=== PATIENT | female | born 1995 | race Caucasian/White ===

== ENCOUNTER 2016-08-07 00:15 | Emergency (ER) | payer BC ==
[~2016-08-07] VITALS: Ht 170.2 cm; Wt 142.9 kg
--- OUTSIDE RECORDS SUMMARY | 2016-08-07 00:26 | XMS REPORT ---
Author Author IMANI OLIVER Organization [employer] Address Unknown Phone Unavailable Care Team Providers Care Casing Splitter Name Role Phone IMANI OLIVER CP Unavailable Allergies, Adverse Reactions, Alerts Substance Reaction Event Type N.K.D.A. Info Not Available Non Drug Allergy Problems Problem Type Condition Code Onset Dates Condition Status Problem General counseling for prescription of oral contraceptives V25.01 Active Problem Scanty or infrequent menstruation 626.1 Active Problem Dysthymic disorder 300.4 Active Assessment Upper respiratory tract infection, unspecified type J06.9 Active Problem Morbid obesity 278.01 Active Problem Counseling on other sexually transmitted diseases V65.45 Active Medications No Known Medications Procedures Procedure Coding System Code Date Office Visit, Est Pt., Level 3 CPT-4 74170 Jun 04, 2015 Vital Signs Date/Time: Jun 04, 2015 Temperature 98.4 F Weight 304.4 lbs Height 67 in BMI 47.67 Index Blood Pressure Diastolic 80 mmHg Blood Pressure Systolic 124 mmHg Cardiac Monitoring Heart Rate 96 bpm Results No Known Results Summary Purpose [employer] Submission
[2016-08-07] MEDS ORDERED: CITA10TA7 (00:34)
[2016-08-07] MEDS ORDERED: METF500T8 (00:34)
--- NOTE | 2016-08-07 00:59 | ED GI ---
General Chief Complaint: Abdominal/GI Problems Stated Complaint: LEFT UPPER SIDE PAIN,SPREADING TO BACK Nursing Triage Note: LUQ abdomen pain x 1 month. reports pain getting worse and has had diarrhea the past few days Sepsis Screen: No Definite Risk Source of Information: Patient History of Present Illness Time Seen By Provider: 12:45 Initial Comments 21-year-old female presents with upper abdominal pain for one month. States his been progressively getting worse. Had diarrhea for a few days. States the pains more located on the left side wraps around to her back. She is also having right -sided abdominal pain. She denies any fevers or chills. Allergies and Home Medications Allergies Coded Allergies: No Known Drug Allergies (Unverified , 08/07/16) Home Medications Citalopram Hydrobromide 10 Mg Tablet #30 (Reported) Metformin HCl 500 Mg Tab.er.24h #30 (Reported) Review of Systems Constitutional: No chills, No fever EENTM: No Symptoms Reported Respiratory: No Symptoms Reported Cardiovascular: Denies Chest Pain Gastrointestinal: Abdominal Pain DiarrheaDenies Vomiting Genitourinary: No Symptoms Reported Skin: no symptoms reported Psychiatric/Neurological: No Symptoms Reported Past Yxhovdu-Ddmugq-Opvuag Hx Patient Social History Alcohol Use: Regular Use Recreational Drug Use: No Smoking Status: Never a Smoker Recent Foreign Travel: No Contact w/Someone Who Travel: No Recent Infectious Disease Expo: No Recent Hopitalizations: No Physical Abuse Screen: No Sexual Abuse: No Seasonal Allergies Seasonal Allergies: No Surgeries HX Surgeries: No Respiratory Hx Respiratory Disorders: No Cardiovascular Hx Cardiac Disorders: No Neurological Hx Neurological Disorders: No Reproductive System Hx Reproductive Disorders: No Sexually Transmitted Disease: No Genitourinary Hx Genitourinary Disorders: No Gastrointestinal Hx Gastrointestinal Disorders: No Musculoskeletal Hx Musculoskeletal Disorders: No Endocrine Hx Endocrine Disorders: Yes Endocrine Disorders: Diabetes, Non-Insulin dep HEENT HX ENT Disorders: No Cancer Hx Cancer: No Psychosocial Hx Psychiatric Problems: No Integumentary HX Skin/Integumentary Disorder: No Blood Transfusions Hx Blood Disorders: No Physical Exam Vital Signs VS - Last 72 Hours, by Label 08/07/16 08/07/16 00:30 02:16 Temp 99.3 98.0 Pulse 106 98 Resp 18 20 B/P 170/98 Pulse Ox 95 99 Capillary Refill : Less Than 3 Seconds General Appearance: WD/WN no apparent distress HEENT: PERRL/EOMI Respiratory: lungs clear normal breath sounds Cardiovascular: regular rate, rhythm Peripheral Pulses: 2+ Radial Pulses (R), 2+ Radial Pulses (L) Gastrointestinal: soft tenderness (mild ttp, ruq, luq ) Extremities: normal range of motion non-tender Neurologic/Psychiatric: alert oriented x 3 Skin: normal color warm/dry Progress/Results/Core Measures Results/Orders Lab Results Laboratory Tests Test 08/07/16 00:50 08/07/16 01:23 Range/Units Urine Bacteria MODERATE H /HPF Urine Bilirubin NEGATIVE NEGATIVE Urine Casts NONE /LPF Urine Clarity SLIGHTLY CLOUDY Urine Color YELLOW Urine Crystals NONE /LPF Urine Culture Indicated YES Urine Glucose (UA) NEGATIVE NEGATIVE Urine Ketones NEGATIVE NEGATIVE Urine Leukocyte Esterase 2+ H NEGATIVE Urine Mucus NEGATIVE /LPF Urine Nitrite NEGATIVE NEGATIVE Urine Protein NEGATIVE NEGATIVE Urine RBC NONE /HPF Urine RBC (Auto) NEGATIVE NEGATIVE Urine Specific [place] 1.010 L 1.016-1.022 Urine Squamous Epithelial Cells 10-25 H /HPF Urine Urobilinogen 1 NORMAL MG/DL Urine WBC 5-10 H /HPF Urine pH 7 5-9 Alanine Aminotransferase (ALT/SGPT) 42 0-55 U/L Albumin 4.4 3.2-4.5 G/DL Alkaline Phosphatase 60 40-136 U/L Anion Gap 14 5-14 MMOL/L Aspartate Amino Transf (AST/SGOT) 19 5-34 U/L BUN/Creatinine Ratio 11 Basophils # (Auto) 0.0 0.0-0.1 10^3/uL Basophils (%) (Auto) 0 0-10 % Blood Urea Nitrogen 8 7-18 MG/DL Calcium Level 9.3 8.5-10.1 MG/DL Carbon Dioxide Level 21 21-32 MMOL/L Chloride Level 105 98-107 MMOL/L Creatinine 0.70 0.60-1.30 MG/DL Eosinophils # (Auto) 0.3 0.0-0.3 10^3/uL Eosinophils (%) (Auto) 2 0-10 % Estimat Glomerular Filtration Rate > 60 Glucose Level 150 H 70-105 MG/DL Hematocrit 41 35-52 % Hemoglobin 13.1 11.5-16.0 G/DL Lipase 28 8-78 U/L Lymphocytes # (Auto) 2.3 1.0-4.0 X 10^3 Lymphocytes (%) (Auto) 20 12-44 % Mean Corpuscular Hemoglobin 27 25-34 PG Mean Corpuscular Hemoglobin Concent 32 32-36 G/DL Mean Corpuscular Volume 86 80-99 FL Mean Platelet Volume 11.2 H 7.4-10.4 FL Monocytes # (Auto) 0.6 0.0-1.0 X 10^3 Monocytes (%) (Auto) 5 0-12 % Neutrophils # (Auto) 8.4 H 1.8-7.8 X 10^3 Neutrophils (%) (Auto) 73 42-75 % Platelet Count 314 130-400 10^3/uL Potassium Level 3.8 3.6-5.0 MMOL/L Red Blood Count 4.83 4.35-5.85 10^6/uL Red Cell Distribution Width 14.9 H 10.0-14.5 % Sodium Level 140 135-145 MMOL/L Total Bilirubin 0.3 0.1-1.0 MG/DL Total Protein 8.2 6.4-8.2 G/DL White Blood Count 11.6 H 4.3-11.0 10^3/uL My Orders Orders-SAMIR CELIS DO Comprehensive Metabolic Panel (08/07/16 00:55) Lipase (08/07/16 00:55) Urine Bedside (08/07/16 00:55) Cbc With Automated Diff (08/07/16 00:55) Urine Dip-Bedside (08/07/16 00:55) Abdomen/[place] 1[place] (08/07/16 00:55) Ua Culture If Indicated (08/07/16 00:59) Urine Culture (08/07/16 00:50) Vital Signs/I&O Vital Sign - Last 12Hours 08/07/16 08/07/16 00:30 02:16 Temp 99.3 98.0 Pulse 106 98 Resp 18 20 B/P 170/98 Pulse Ox 95 99 Blood Pressure Mean: 122 Diagnostic Imaging Diagonstic Imaging: Xray Plain Films/CT/US/NM/MRI: abdomen Comments no acute process Reviewed: Reviewed by Me Departure Impression Impression: Primary Impression: Abdominal pain Qualified Code: R10.10 - Upper abdominal pain, unspecified Additional Impression: Diarrhea Qualified Code: R19.7 - Diarrhea, unspecified Disposition: 01 HOME, SELF-CARE Condition: Stable Departure-Patient Inst. Referrals: NO,LOCAL PHYSICIAN (PCP) Primary Care Physician BELKIS PINON APRN (Family) Primary Care Physician follow up after US to obtain results. Patient Instructions: Abdominal Ultrasound, Acute Abdomen (Belly Pain), Adult ( DC) Add. Discharge Instructions: Obtain outpt US, follow up with pcp for results. All discharge instructions reviewed with patient and/or family. Voiced understanding. SAMIR CELIS DO Aug 07, 2016 00:59
[2016-08-07 01:03] LABS: BILIRUBIN,URINE NEGATIVE (NEGATIVE); KETONES,URINE NEGATIVE (NEGATIVE); LEUKOCYTE ESTERASE ,URINE 2+ (NEGATIVE); NITRITE,URINE NEGATIVE (NEGATIVE); PH,URINE 7 (5-9); PROTEIN,URINE NEGATIVE (NEGATIVE); UROBILINOGEN,URINE 1 MG/DL (NORMAL)
[2016-08-07 01:32] LABS: BASOPHILS % (AUTO) 0 % (0-10); EOSINOPHILS # (AUTO) 0.3 10^3/uL (0.0-0.3); EOSINOPHILS % (AUTO) 2 % (0-10); LYMPHOCYTES # (AUTO) 2.3 X 10^3 (1.0-4.0); LYMPHOCYTES % (AUTO) 20 % (12-44); MEAN CORPUSCULAR HEMOGLOBIN 27 PG (25-34); MEAN CORPUSCULAR HGB CONC 32 G/DL (32-36); MEAN CORPUSCULAR VOLUME 86 FL (80-99); MEAN PLATELET VOLUME 11.2 FL (7.4-10.4); MONOCYTES # (AUTO) 0.6 X 10^3 (0.0-1.0); MONOCYTES % (AUTO) 5 % (0-12); NEUTROPHILS # (AUTO) 8.4 X 10^3 (1.8-7.8); NEUTROPHILS % (AUTO) 73 % (42-75); PLATELET COUNT 314 10^3/uL (130-400); RED BLOOD COUNT 4.83 10^6/uL (4.35-5.85); RED CELL DISTRIBUTION WIDTH 14.9 % (10.0-14.5); WHITE BLOOD COUNT 11.6 10^3/uL (4.3-11.0)
[2016-08-07 01:52] LABS: ALANINE AMINOTRANSFERASE 42 U/L (0-55); ALBUMIN 4.4 G/DL (3.2-4.5); ANION GAP 14 MMOL/L (5-14); ASPARTATE AMINO TRANSFERASE 19 U/L (5-34); BILIRUBIN,TOTAL 0.3 MG/DL (0.1-1.0); BLOOD UREA NITROGEN 8 MG/DL (7-18); BUN/CREATININE RATIO 11; CALCIUM 9.3 MG/DL (8.5-10.1); CARBON DIOXIDE 21 MMOL/L (21-32); CHLORIDE 105 MMOL/L (98-107); GFR ESTIMATED > 60; GLUCOSE 150 MG/DL (70-105); LIPASE 28 U/L (8-78); POTASSIUM 3.8 MMOL/L (3.6-5.0); SODIUM 140 MMOL/L (135-145); TOTAL PROTEIN 8.2 G/DL (6.4-8.2)
[2016-08-07 02:16] VITALS: BP 154/99
--- NOTE | 2016-08-07 07:03 | Diagnostic Imaging Report ---
CLINICAL INDICATION: Patient with left upper quadrant pain x1 month. EXAM: KUB x-ray. Comparison: None. FINDINGS: There are no focal calcifications overlying the expected regions/ pathways of both kidneys, ureters, and bladder regions. There is a nonobstructed bowel gas pattern. There is no evidence of abdominal free air. There is a small/ moderate amount of stool seen in the right colon region. The visualized bones and extra abdominal soft tissues are unremarkable. IMPRESSION: There is no radiographic evidence for acute abdominal/ pelvic process or urinary tract stones. Dictated by: Dictated on workstation # [id number]
== END 2016-08-07 02:16 | disposition home or self-care (01) ==
LOC: EDUNIT# 00:15 → ER 00:22
DX: R10.12 Left upper quadrant pain (principal); R19.7 Diarrhea, unspecified; E11.9 Type 2 diabetes mellitus without complications
CPT/HCPCS: 36415; 74000; 80053; 81000; 83690; 84703; 85025; 87088

== ENCOUNTER → 2016-08-11 | Outpatient (CLI) | payer BC ==
[~2016-08-11] MED LIST: CITA10TA7; METF500T8
--- OUTSIDE RECORDS SUMMARY | 2016-08-11 08:55 | XMS REPORT | Continuity of Care Document ---
Author Author [facility] Organization [facility] Address Unknown Phone Unavailable Care Team Providers Care Decatizer Name Role Phone NO, LOCAL PHYSICIAN PCP Unavailable Insurance Providers Payer Name Policy Number Subscriber Name Relationship [id number] Sunil Ingram G8 Step Father Advance Directives Directive Response Recorded Date/Time Advance Directives No 08/07/16 12:30am Resuscitation Status Full Code 08/07/16 12:30am Chief Complaint and Reason for Visit Chief Complaint Abdominal/GI Problems Reason for Visit Diarrhea Abdominal pain Problems Active Problems Medical Problem Onset Date Status Abdominal pain Unknown Acute Diarrhea Unknown Acute Medications Current Home Medications Medication Dose Units Route Directions Days/Qty Instructions Start Date Citalopram Hydrobromide 10 Mg 30 08/07/16 Metformin Hcl 500 Mg 30 08/07/16 Social History Social History Problem Response Recorded Date/Time Alcohol Use Regular Use 08/07/2016 12:30am Recreational Drug Use No 08/07/2016 12:30am Recent Foreign Travel No 08/07/2016 12:30am Recent Infectious Disease Exposure No 08/07/2016 12:30am Hospitalization with Isolation Denies 08/07/2016 12:30am Sexually Transmitted Disease No 08/07/2016 12:30am Smoking Status Never a Smoker 08/07/2016 12:30am Recent Hopitalizations No 08/07/2016 12:30am Sexually Transmitted Disease No 08/07/2016 12:30am Hospitalization with Isolation Denies 08/07/2016 12:30am Query Response Start Date Stop Date Smoking Status Never a Smoker Hospital Discharge Instructions No hospital discharge instructions. Plan of Care Discharge Date 08/07/16 2:16am Disposition 01 HOME, SELF-CARE Condition at Discharge Stable Instructions/Education Provided Abdominal Ultrasound Acute Abdomen (Belly Pain), Adult (DC) Prescriptions See Medication Section Referrals NO,LOCAL PHYSICIAN - Primary Care Physician BELKIS PINON APRN - Primary Care Physician Additional Instructions/Education Obtain outpt US, follow up with pcp for results. All discharge instructions reviewed with patient and/or family. Voiced understanding. Functional Status No functional status results. Allergies, Adverse Reactions, Alerts No known allergies. Immunizations No immunization records. Vital Signs Acute Vital Signs Vital Response Date/Time Temperature (Fahrenheit) 99.3 degrees F (97.6 - 99.5) 08/07/2016 12:30am Temperature (Calculated Celsius) 37.40115 degrees C (36.4 - 37.5) 08/07/2016 12:30am Pulse Rate (adult) 106 bpm (60 - 90) 08/07/2016 12:30am Respiratory Rate 18 bpm (12 - 24) 08/07/2016 12:30am O2 Sat by Pulse Oximetry 95 % (88 - 100) 08/07/2016 12:30am Blood Pressure 170/98 mm Hg 08/07/2016 12:30am Blood Pressure Mean 122 mm Hg 08/07/2016 12:30am Pain Numeric Pain Scale 2 08/07/2016 12:30am Height (Feet) 5 feet 08/07/2016 12:30am Height (Inches) 7 inches 08/07/2016 12:30am Height (Calculated Centimeters) 170.998004 cm 08/07/2016 12:30am Weight (Pounds) 315 pounds 08/07/2016 12:30am Weight (Calculated Kilograms) 142.384153 kilograms 08/07/2016 12:30am Capillary Refill Capillary Refill Less Than 3 Seconds 08/07/2016 12:30am Height 5 ft 7 in Weight 315 lb Body Mass Index 49.3 kg/m^2 Results Laboratory Results Test Name Result Units Flags Reference Collection Date/Time Result Date/ Time Comments White Blood Count 11.6 10^3/uL H 4.3-11.0 08/07/2016 1:23am 08/07/2016 1: 32am Red Blood Count 4.83 10^6/uL 4.35-5.85 08/07/2016 1:08/07/2016 1: 32am Hemoglobin 13.1 G/DL 11.5-16.0 08/07/2016 1:08/07/2016 1:32am Hematocrit 41 % 35-52 08/07/2016 1:08/07/2016 1:32am Mean Corpuscular Volume 86 FL 80-99 08/07/2016 1:08/07/2016 1: 32am Mean Corpuscular Hemoglobin 27 PG 25-34 08/07/2016 1:08/07/2016 1: 32am Mean Corpuscular Hemoglobin Concent 32 G/DL 32-36 08/07/2016 1: 1:32am Red Cell Distribution Width 14.9 % H 10.0-14.5 08/07/2016 1:2016 1:32am Platelet Count 314 10^3/uL 130-400 08/07/2016 1:08/07/2016 1:32am Mean Platelet Volume 11.2 FL H 7.4-10.4 08/07/2016 1:08/07/2016 1: 32am Neutrophils (%) (Auto) 73 % 42-75 08/07/2016 1:08/07/2016 1:32am Lymphocytes (%) (Auto) 20 % 12-44 08/07/2016 1:08/07/2016 1:32am Monocytes (%) (Auto) 5 % 0-12 08/07/2016 1:08/07/2016 1:32am Eosinophils (%) (Auto) 2 % 0-10 08/07/2016 1:08/07/2016 1:32am Basophils (%) (Auto) 0 % 0-10 08/07/2016 1:08/07/2016 1:32am Neutrophils # (Auto) 8.4 X 10^3 H 1.8-7.8 08/07/2016 1:08/07/2016 1: 32am Lymphocytes # (Auto) 2.3 X 10^3 1.0-4.0 08/07/2016 1:08/07/2016 1: 32am Monocytes # (Auto) 0.6 X 10^3 0.0-1.0 08/07/2016 1:23am 08/07/2016 1: 32am Eosinophils # (Auto) 0.3 10^3/uL 0.0-0.3 08/07/2016 1:23am 08/07/2016 1 :32am Basophils # (Auto) 0.0 10^3/uL 0.0-0.1 08/07/2016 1:23am 08/07/2016 1: 32am Urine Color YELLOW 08/07/2016 12:50am 08/07/2016 1:13am Urine Clarity SLIGHTLY CLOUDY 08/07/2016 12:50am 08/07/2016 1:13am Urine pH 7 5-9 08/07/2016 12:50am 08/07/2016 1:13am Urine Specific [place] 1.010 * 1.016-1.022 08/07/2016 12:50am 2016 1:13am Urine Protein NEGATIVE NEGATIVE 08/07/2016 12:50am 08/07/2016 1:13am Urine Glucose (UA) NEGATIVE NEGATIVE 08/07/2016 12:50am 08/07/2016 1: 13am Urine RBC (Auto) NEGATIVE NEGATIVE 08/07/2016 12:50am 08/07/2016 1: 13am Urine Ketones NEGATIVE NEGATIVE 08/07/2016 12:50am 08/07/2016 1:13am Urine Nitrite NEGATIVE NEGATIVE 08/07/2016 12:50am 08/07/2016 1:13am Urine Bilirubin NEGATIVE NEGATIVE 08/07/2016 12:50am 08/07/2016 1: 13am Urine Urobilinogen 1 MG/DL NORMAL 08/07/2016 12:50am 08/07/2016 1:13am Urine Leukocyte Esterase 2+ * NEGATIVE 08/07/2016 12:50am 08/07/2016 1: 13am Urine RBC NONE /HPF 08/07/2016 12:50am 08/07/2016 1:13am Urine WBC 5-10 /HPF * 08/07/2016 12:50am 08/07/2016 1:13am Urine Bacteria MODERATE /HPF * 08/07/2016 12:50am 08/07/2016 1:13am Urine Squamous Epithelial Cells 10-25 /HPF * 08/07/2016 12:50am 2016 1:13am Urine Crystals NONE /LPF 08/07/2016 12:50am 08/07/2016 1:13am Urine Casts NONE /LPF 08/07/2016 12:50am 08/07/2016 1:13am Urine Mucus NEGATIVE /LPF 08/07/2016 12:50am 08/07/2016 1:13am Urine Culture Indicated YES 08/07/2016 12:50am 08/07/2016 1:13am Sodium Level 140 MMOL/L 135-145 08/07/2016 1:2308/07/2016 1:53am Potassium Level 3.8 MMOL/L 3.6-5.0 08/07/2016 1:08/07/2016 1:53am Chloride Level 105 MMOL/L 98-107 08/07/2016 1:08/07/2016 1:53am Carbon Dioxide Level 21 MMOL/L 21-32 08/07/2016 1:08/07/2016 1: 53am Anion Gap 14 MMOL/L 5-14 08/07/2016 1:08/07/2016 1:53am Blood Urea Nitrogen 8 MG/DL 7-18 08/07/2016 1:08/07/2016 1:53am Creatinine 0.70 MG/DL 0.60-1.30 08/07/2016 1:08/07/2016 1:53am BUN/Creatinine Ratio 11 08/07/2016 1:08/07/2016 1:53am Estimat Glomerular Filtration Rate > 60 08/07/2016 1:2016 1:53am GFR INTERPRETIVE DATA UNITS FOR ESTIMATED GFR (eGFR): mL/min/1.73 M2 REFERENCE RANGE FOR ESTIMATED GFR (eGFR) eGFR NORMAL eGFR >60 MODERATELY DECREASED eGFR 30-59 SEVERLY DECREASED eGFR 15-29 KIDNEY FAILURE <15 (OR DIALYSIS) Glucose Level 150 MG/DL H 70-105 08/07/2016 1:08/07/2016 1:53am Calcium Level 9.3 MG/DL 8.5-10.1 08/07/2016 1:08/07/2016 1:53am Total Bilirubin 0.3 MG/DL 0.1-1.0 08/07/2016 1:08/07/2016 1:53am Alkaline Phosphatase 60 U/L 40-136 08/07/2016 1:23am 08/07/2016 1:53am Aspartate Amino Transf (AST/SGOT) 19 U/L 5-34 08/07/2016 1:23am 2016 1:53am Alanine Aminotransferase (ALT/SGPT) 42 U/L 0-55 08/07/2016 1:23am 08/07 1:53am Total Protein 8.2 G/DL 6.4-8.2 08/07/2016 1:23am 08/07/2016 1:53am Albumin 4.4 G/DL 3.2-4.5 08/07/2016 1:23am 08/07/2016 1:53am Lipase 28 U/L 8-78 08/07/2016 1:am 08/07/2016 1:53am Procedures No known history of procedures. Encounters Encounter Location Arrival/Admit Date Discharge/Depart Date Attending Provider Registered Emergency Room [facility] 08/07/16 12:22am SAMIR CELIS DO Recent Diagnosis
--- NOTE | 2016-08-11 10:55 | Diagnostic Imaging Report ---
PROCEDURE: US Gallbladder. TECHNIQUE: Multiple real-time grayscale images were obtained over the right upper quadrant in various projections. INDICATION: Upper abdominal pain. FINDINGS: The pancreas is obscured by bowel gas. The liver is mildly enlarged measuring 22 cm craniocaudally. The liver is hyperechoic and dense compatible with fatty infiltration. It significantly attenuates the ultrasound beam. There is hepatopetal flow demonstrated in the portal vein. The gallbladder demonstrates no stones or wall thickening. No pericholecystic fluid. Sonographic Suárez's sign is reportedly negative. No fluid collection in the upper right abdomen seen. The right kidney is 11.5 cm in length with no hydronephrosis or focal lesion. IMPRESSION: Enlarged fatty liver. Dictated by: Dictated on workstation # [id number]
== END ==
LOC: RAD 08:49
PROVIDERS: ATTEND Student in an Organized Health Care Education/Training Program
DX: R10.11 Right upper quadrant pain (principal); K76.0 Fatty (change of) liver, not elsewhere classified
CPT/HCPCS: 76705

== ENCOUNTER → 2016-09-25 | Outpatient (CLI) | payer BC ==
[~2016-09-25] MED LIST changes: +CATHETER FLUSH 10 ML SYR IV PRN
--- OUTSIDE RECORDS SUMMARY | 2016-09-25 12:01 | XMS REPORT | Continuity of Care Document ---
Author Author [facility] Organization [facility] Address Unknown Phone Unavailable Care Team Providers Care Fish Stringer Assembler Name Role Phone NO, LOCAL PHYSICIAN PCP Unavailable Insurance Providers Payer Name Policy Number Subscriber Name [id number] G8 Step Father Advance Directives [...] - 99.5) 08/07/2016 12:30am Temperature (Calculated Celsius) 37.42495 degrees C (36.4 - 37.5) 08/07/2016 12:30am [...] 7 inches 08/07/2016 12:30am Height (Calculated Centimeters) 170.794109 cm 08/07/2016 12:30am Weight (Pounds) 315 pounds 08/07/2016 12:30am Weight (Calculated Kilograms) 142.881858 kilograms 08/07/2016 12:30am Capillary Refill Capillary Refill [...] 5-9 08/07/2016 12:50am 08/07/2016 1:13am Urine Specific [place] 1.010 * 1.016-1.022 08/07/2016 12:50am 2016 1:13am [...] Date Attending Provider Registered Emergency Room [facility] 08/07/16 12:22am SAMIR CELIS DO Recent Diagnosis
--- NOTE | 2016-09-25 15:35 | Diagnostic Imaging Report ---
INDICATION: Right upper quadrant abdominal pain. EXAMINATION: Nuclear hepatobiliary study performed in the routine fashion with intravenous injection of 5.43 mCi of technetium 99m Choletec. FINDINGS: There is prompt uptake of the tracer by the liver. Tracer is visualized in the biliary tree within 10-15 minutes. Tracer is visualized in the gallbladder within 15 minutes. Tracer is visualized in the small bowel within 1 hour. The patient was then given Ensure, orally. The gallbladder ejection fraction was calculated. The calculated gallbladder ejection fraction was 52% percent. IMPRESSION: Normal nuclear hepatobiliary study with normal gallbladder ejection fraction. Dictated by: Dictated on workstation # [id number]
== END ==
LOC: CARD 11:57
PROVIDERS: ATTEND Nurse Practitioner Family
DX: R10.11 Right upper quadrant pain (principal)
CPT/HCPCS: 78227

== ENCOUNTER → 2019-09-11 | Outpatient (CLI) | payer BC ==
[~2019-09-11] MED LIST changes: +METF500T19; -METF500T8
--- NOTE | 2019-09-11 17:57 | Diagnostic Imaging Report ---
EXAMINATION: Hepatobiliary scan with ejection fraction. INDICATION: Abdominal pain. TECHNIQUE: This study was performed following administration of 5.23 mCi of Choletec. One can of Ensure was also administered for the calculation of the ejection fraction. The patient did complain of some discomfort with the Ensure. FINDINGS: The previous hepatobiliary scan of 09/25/2016 failed to show any sign of acute cholecystitis or for obstruction of the common bile duct. The ejection fraction was 52% (normal greater than 35%). On this exam, there is again uptake of the radiotracer about the gallbladder before 30 minutes. This would weigh against the diagnosis of acute cholecystitis. There is also extension of the radiotracer into the small bowel, indicating that the common bile duct is not obstructed. The ejection fraction is 43.3%. IMPRESSION: 1. There is still no evidence for acute cholecystitis or for obstruction of the common bile duct. 2. The ejection fraction has decreased since the prior exam but is still within normal limits. Dictated by: Dictated on workstation # [id number]
== END ==
LOC: CARD 09:35
PROVIDERS: ATTEND Registered Nurse
DX: R10.11 Right upper quadrant pain (principal)
CPT/HCPCS: 78227